=== PATIENT | male | born 1990 | race Caucasian/White ===

== ENCOUNTER 2018-06-12 11:00 | Emergency (ER) | payer OTHER ==
[~2018-06-12] VITALS: Ht 180.3 cm; Wt 83.9 kg
[2018-06-12] MEDS ORDERED: LEVETIRACETAM (250 MG) 250 MG TABLET PO ONE ×3 (11:15→11:30)
[2018-06-12] MEDS ORDERED: LORAZEPAM 1 MG TABLET ONE (11:15)
--- NOTE | 2018-06-12 11:27 | NUR ---
Patient discharged to home in stable condition. Written and verbal after care instructions given. Patient verbalizes understanding of instruction. Pt assisted to the waiting room while waiting for his family to pick him up.
[2018-06-12 11:29] VITALS: BP 151/96
[2018-06-12] MEDS ORDERED: LORAZEPAM 1 MG TABLET PO ONE (11:30)
== END 2018-06-12 11:30 | disposition home or self-care (01) ==
LOC: ER 11:01
DX: G40.909 Epilepsy, unspecified, not intractable, without status epilepticus (principal); F10.10 Alcohol abuse, uncomplicated; Y90.9 Presence of alcohol in blood, level not specified; Z88.2 Allergy status to sulfonamides
CPT/HCPCS: 99284; A4606; Z7610

== ENCOUNTER 2020-12-16 23:02 | Emergency (ER) | payer OTHER ==
[~2020-12-16] VITALS: Ht 190.5 cm; Wt 86.2 kg
[2020-12-16 23:02] VITALS: BP 118/71
== END 2020-12-17 05:53 | disposition home or self-care (01) ==
LOC: ER 23:03
DX: T40.2X1A Poisoning by other opioids, accidental (unintentional), initial encounter (principal); F17.200 Nicotine dependence, unspecified, uncomplicated; Z88.2 Allergy status to sulfonamides; Y92.89 Other specified places as the place of occurrence of the external cause

== ENCOUNTER 2022-04-03 00:42 | Emergency (ER) | payer OTHER ==
[~2022-04-03] VITALS: Ht 172.7 cm; Wt 72.6 kg
--- NOTE | 2022-04-03 01:08 | NUR ---
[address] 62 c/o etoh found behind bar. BS [employer]. PT arousable to touch but drowsy. Tolerating R/A well with no SOB
--- NOTE | 2022-04-03 01:15 | NUR ---
ANKUR TIRADO BS 105; DR. NAVDEEP BEAR AWARE
[2022-04-03] MEDS ORDERED: LORAZEPAM 0.5 MG TABLET ONE (10:25)
[2022-04-03] MEDS ORDERED: LEVETIRACETAM (250 MG) 250 MG TABLET PO ONE ×2 (10:30)
[2022-04-03] MEDS ORDERED: LORAZEPAM 1 MG TABLET PO ONE (10:30)
[2022-04-03] MEDS ORDERED: CEPH500T PO (10:34)
[2022-04-03] MEDS ORDERED: LEVE1000 PO (10:42)
--- NOTE | 2022-04-03 10:42 | NUR ---
Patient discharged to home in stable condition. Written and verbal after care instructions given. Patient verbalizes understanding of instruction.
[2022-04-03 10:43] VITALS: BP 122/68
== END 2022-04-03 10:43 | disposition home or self-care (01) ==
LOC: ER 00:44
DX: F10.129 Alcohol abuse with intoxication, unspecified (principal); F17.200 Nicotine dependence, unspecified, uncomplicated; Z88.2 Allergy status to sulfonamides; Z60.2 Problems related to living alone; Y90.9 Presence of alcohol in blood, level not specified
CPT/HCPCS: 82962-TC